=== PATIENT | male | born 1975 | race Caucasian/White ===

== ENCOUNTER 2017-08-29 20:44 | Emergency (ER) | payer SELFPAY ==
[~2017-08-29] VITALS: Ht 154.9 cm; Wt 79.5 kg
[2017-08-29 20:54] VITALS: Ht 154.9 cm; Wt 79.5 kg
[2017-08-29] MEDS ORDERED: SOD CHLORIDE 0.9% 1,000 ML IV STA (23:19)
[2017-08-29] MEDS ORDERED: KETOROLAC 30 MG INJ IV STA (23:19)
--- NOTE | 2017-08-29 23:34 | ERD ---
ER Documentation Chief Complaint Date/Time DATE: 08/29/17 TIME: 23:25 Chief Complaint fever x 3 days, pain on urination x months HPI 42-year-old male presents here in emergency department for complaints of fever for 3 days, patient has been having dysuria for months now, for the last 3 months, is worse in the last 1 week. Patient denies any hematuria. Patient is complaining of pain upon urination burning pain 4/10 scale, accompanied with right testicular pain. Patient denies any swelling in the right testicle. Patient denies any flank pain. Patient denies any diarrhea or constipation. Patient denies any other symptoms. Patient denies any recent trauma. Patient denies any sick contacts. Patient did not take any medications to help with symptoms. ROS All systems reviewed and are negative except as per history of present illness. Medications Home Meds Active Scripts Tramadol HCl (Tramadol HCl) 50 Mg Tablet, 50 MG PO Q6 Y for SEVERE PAIN LEVEL 7- 10, #20 TAB Prov:KVNG TRIVEDI NP 08/30/17 Phenazopyridine Hcl* (Pyridium*) 200 Mg Tab, 200 MG PO TID Y for URINARY PAIN, # 6 TAB Prov:KVNG TRIVEDI NP 08/30/17 Ciprofloxacin Hcl* (Ciprofloxacin Hcl*) 500 Mg Tablet, 500 MG PO BID for 10 Days , TAB Prov:KVNG TRIVEDI NP 08/30/17 Reported Medications [none] Unknown Strength No Conflict Check 08/29/17 Allergies Allergies: Coded Allergies: No Known Allergy (Unverified , 08/29/17) PMhx/Soc Medical and Surgical Hx: pt denies Medical Hx, pt denies Surgical Hx FmHx Family History: No coronary disease, No diabetes, No other Physical Exam Vitals Vital Signs Date Time Temp Pulse Resp B/P Pulse Ox O2 Delivery O2 Flow Rate FiO2 08/30/17 04:22 98.6 84 16 134/78 98 Room Air 08/29/17 20:54 101.0 101 20 140/85 100 Physical Exam GENERAL: The patient is well developed and appropriate for usual state of health, in no apparent distress. CHEST: Clear to auscultation bilaterally. There are no rales, wheezes or rhonchi. HEART: Regular rate and rhythm. No murmurs, clicks, rubs or gallops. No S3 or S4. ABDOMEN: Soft, nontender and nondistended. Good bowel sounds. No rebound or guarding. No gross peritonitis. No gross organomegaly or masses. No Diggs sign or McBurney point tenderness. BACK: No midline or flank tenderness. EXTREMITIES: Equal pulses bilaterally. There is no peripheral clubbing, cyanosis or edema. No focal swelling or erythema. Full range of motion. Grossly neurovascularly intact. NEURO: Alert and oriented. Cranial nerves 2-12 intact. Motor strength in all 4 extremities with 5/5 strength. Sensation grossly intact. Normal speech and gait. SKIN: There is no apparent rash or petechia. The skin is warm and dry. HEMATOLOGIC AND LYMPHATIC: There is no evidence of excessive bruising or lymphedema. No gross cervical, axillary, or inguinal lymphadenopathy. : Mild tenderness on palpation the right testicle, no redness noted, noted enlarged left testicle, per patient this is normal for him ever since he was young. No penile discharge. Result Diagram: 08/29/17232908/29/172329 Results 24 hrs Laboratory Tests Test 08/29/17 23:30 White Blood Count 6.610^3/ul Red Blood Count 5.2510^6/ul Hemoglobin 15.6g/dl Hematocrit 45.2% Mean Corpuscular Volume 86.1fl Mean Corpuscular Hemoglobin 29.7pg Mean Corpuscular Hemoglobin Concent 34.5g/dl Red Cell Distribution Width 12.3% Platelet Count 20721^3/UL Mean Platelet Volume 12.8fl Neutrophils % 58.2% Lymphocytes % 28.3% Monocytes % 10.6% Eosinophils % 1.5% Basophils % 0.9% Nucleated Red Blood Cells % 0.0/100WBC Neutrophils # 3.910^3/ul Lymphocytes # 1.910^3/ul Monocytes # 0.710^3/ul Eosinophils # 0.110^3/ul Basophils # 0.110^3/ul Nucleated Red Blood Cells # 0.010^3/ul Urine Color YELLOW Urine Clarity CLEAR Urine pH 6.0 Urine Specific [place] 1.018 Urine Ketones NEGATIVEmg/dL Urine Nitrite POSITIVEmg/dL Urine Bilirubin NEGATIVEmg/dL Urine Urobilinogen NEGATIVEmg/dL Urine Leukocyte Esterase 1+Gerard/ul Urine Microscopic RBC 1/HPF Urine Microscopic WBC 19/HPF Urine Bacteria MANY/HPF Urine Yeast (Budding) MANY/HPF Urine Hemoglobin NEGATIVEmg/dL Urine Glucose NEGATIVEmg/dL Urine Total Protein NEGATIVEmg/dl Sodium Level 137mmol/L Potassium Level 4.0mmol/L Chloride Level 105mmol/L Carbon Dioxide Level 24mmol/L Anion Gap 12 Blood Urea Nitrogen 11mg/dl Creatinine 0.80mg/dl Glucose Level 102mg/dl Lactic Acid Level 0.9mmol/L Calcium Level 9.5mg/dl Total Bilirubin 0.7mg/dl Direct Bilirubin 0.00mg/dl Indirect Bilirubin 0.7mg/dl Aspartate Amino Transf (AST/SGOT) 43IU/L Alanine Aminotransferase (ALT/SGPT) 67IU/L Alkaline Phosphatase 95IU/L Total Protein 7.7g/dl Albumin 3.9g/dl Globulin 3.80g/dl Albumin/Globulin Ratio 1.02 Lipase 127U/L Current Medications Medications (Trade) Dose Ordered Sig/Sri Route PRN Reason Start Time Stop Time Status Last Admin Dose Admin Sodium Chloride (NS) 1,000 ml @ 1,000 mls/hr Q1H STAT IV 08/29/17 23:19 08/30/17 00:18 DC 08/29/17 23:37 Ketorolac Tromethamine 30 mg 30 mg ONCE STAT IV 08/29/17 23:19 08/29/17 23:22 DC 08/29/17 23:37 Ciprofloxacin/ Dextrose (Cipro Ivpb) 200 ml @ 200 mls/hr ONCE ONCE IVPB 08/30/17 03:00 08/30/17 03:59 DC 08/30/17 02:58 Patient was given medication for pain here in emergency department, after treatment, patient verbalized feeling much better. Patient's pain is improved. Microbiology INFLUENZA A & B BY EIA Final INFLU A&B BY EIA INFLUENZA A NEGATIVE (Ref Range Neg) INFLUENZA B NEGATIVE (Ref Range Neg) PROCEDURE: XR Chest. CLINICAL INDICATION: Fever. TECHNIQUE: Single frontal chest x-ray. COMPARISON: None. FINDINGS: The cardiomediastinal silhouette is unremarkable. There is no congestive heart failure.. No focal infiltrate is seen. There is no pleural effusion. There is no pneumothorax. There are degenerative changes of the thoracic spine.. IMPRESSION: No acute abnormality. RPTAT: HMVK .Axel Orellana MD, Date Time Electronically viewed and signed by .Axel Orellana MD, MD on 08/30/2017 02:25 .K/ CC: KVNG TRIVEDI NP PROCEDURE: CT Abdomen and Pelvis without contrast. CLINICAL INDICATION: Abdominal pain. TECHNIQUE: A CT scan of the abdomen and pelvis was performed without intravenous contrast. Coronal and sagittal reformatted images were generated. Images were reviewed on a high-resolution PACS workstation. CTDIvol: 12.43 mGy. DLP: 828.94 mGy-cm. One or more of the following dose reduction techniques were used: - Automated exposure control. - Adjustment of the mA and/or kV according to patient size. - Use of iterative reconstruction technique. COMPARISON: None. FINDINGS: Calcified granulomas are noted in the right middle lobe and lingula. The heart is mildly enlarged. Evaluation of the abdominal and pelvic viscera is limited by the lack of oral and intravenous contrast. The liver is unremarkable. The gallbladder is normal in appearance. The common bile duct is not dilated. The spleen is not enlarged. No pancreatic lesion is identified and there is no pancreatic ductal dilatation. The adrenal glands are unremarkable. The kidneys are normal in size. There is mild symmetric perinephric fat stranding, probably age-related. No hydronephrosis is seen. No urinary stone is identified. The small and large bowel are normal in caliber. There is no bowel wall thickening. The appendix is normal. The urinary bladder is unremarkable. The prostate gland and seminal vesicles are within normal limits. There is a very large fat containing left inguinal hernia. No lymphadenopathy is identified. There is no ascites. No pneumoperitoneum is seen. There are no arterial calcifications. No suspicious osseous lesion is idenitified. There is moderate multilevel spinal canal stenosis from L2 to L5 due to disc herniations. There is moderate bilateral neural foraminal narrowing at L4-L5 and severe bilateral neural foraminal narrowing at L5-S1. IMPRESSION: 1. No inflammation, mass, or lymphadenopathy. 2. Normal appendix. 3. No obstructive uropathy or urinary stone. 4. Very large fat containing left inguinal hernia. 5. Mild cardiomegaly. 6. Moderate multilevel spinal canal stenosis from L2 to L5. 7. Moderate bilateral neural foraminal narrowing at L4-L5 and severe bilateral neural foraminal narrowing at L5-S1. RPTAT: HTAR .Cuauhtemoc Watson MD, Date Time Electronically viewed and signed by .Cuauhtemoc Watson MD, on 08/30/2017 01:05 .R/ CC: KVNG TRIVEDI NP PROCEDURE: SCROTAL ULTRASOUND: CLINICAL INDICATION: 42 years of age, male. Right testicular pain . COMPARISON: None available TECHNIQUE: Multiple transverse and sagittal ochoa scale, color, and spectral Doppler sonographic images of the scrotum were obtained. FINDINGS: Right scrotum: Testis measurements: 5.7 x 3.1 x 3.2 cm (Vol 29.7 mL). Testis appearance: Scattered microlithiasis. Echogenicity is otherwise normal. Color and spectral Doppler tracings: Normal arterial flow. Flow is increased compared to the left testicle. Epididymis: Normal. Other: Moderate right hydrocele with debris Left scrotum: Testis measurements: 1.8 x 2.8 x 2.2 cm (Vol 5.8 mL). Testis appearance: Scattered microlithiasis. Echogenicity is otherwise normal. Color and spectral Doppler tracings: Normal arterial flow. Flow is decreased compared to the right testicle. Epididymis: Normal. Other: No hydrocele or varicocele. Additional comment: None. IMPRESSION: 1. Moderate right hydrocele with debris. This is a potential cause for right scrotal pain. 2. Atrophic left testicle. Right testicle is top normal in size. Relative increased blood flow in the right testicle compared to the left may be due to its larger size. Right testicular orchitis cannot be excluded. Epididymi appear normal. 3. Bilateral testicular microlithiasis. This is a risk factor for germ cell metaplasia that may increase the risk of germ cell tumors in at risk patients. Risk factors include, but are not limited to, previous undescended testicle or hypogonadism. If there are risk factors, annual ultrasound imaging surveillance is advised. In the absence of risk factors, recommend annual clinical exam. RPTAT: HCTS Signed By: Felicia Noble/MDM Medical Decision Making: Symptoms of fever and dysuria most likely is consistent with urinary tract infection is seen in the urinalysis results with positive nitrite. Patient does not have any leukocytosis, no bandemia. No symptoms of pyelonephritis. Right testicular pain most likely is from moderate right hydrocele noted in the ultrasound. No symptoms of testicular torsion, no symptoms of epididymitis, orchitis. There is testicular microlithiasis noted, patient was informed about this and advised to follow-up with urology specialist for further evaluation, patient also has inguinal hernia and was advised to follow-up with urology specialist for this. Patient was given IV ciprofloxacin here in emergency department, will be sent home with Cipro Floxin for treatment of urinary tract infection. Lactic acid is normal, no symptoms of sepsis at this time. There is low suspicion for abdominal emergencies at this time. Patients abdominal exam is normal at this time. Patients radiology exam does not show any abdominal emergencies at this time. There is low suspicion for appendicitis, cholecystitis, abdominal aortic aneurysms or peritonitis at this time. There is low suspicion for sepsis. Patient appears well and is hemodynamically stable. Disposition: Home. Condition: Stable Prescription Cipro, Pyridium, tramadol Instructions: Patient is advised to take medications as prescribed. Patient is advised to rest, increase fluid intake and do brat diet for next 1-2 days and progress as tolerated. Patient is advised that if symptoms are worse, severe abdominal pain, uncontrolled vomiting, high fever, severe flank pain, worst signs and symptoms, to return to the emergency department immediately. Otherwise, patient can follow up with primary care doctor in 5-7 days. Disclaimer: Inadvertent spelling and grammatical errors are likely due to EHR/ dictation software use and do not reflect on the overall quality of patient care. Also, please note that the electronic time recorded on this note does not necessarily reflect the actual time of the patient encounter. Departure Diagnosis: Primary Impression: UTI (urinary tract infection) Urinary tract infection type: acute cystitis Hematuria presence: without hematuria Qualified Code: N30.00 - Acute cystitis without hematuria Additional Impressions: Hydrocele, right Testicular microlithiasis Inguinal hernia Obstruction and gangrene presence: without obstruction or gangrene Laterality : unilateral Recurrence: not specified as recurrent Qualified Code: K40.90 - Unilateral inguinal hernia without obstruction or gangrene, recurrence not specified Condition: Stable Patient Instructions: Hernia (Inguinal, Ventral, Umbilical), Hydrocele, Type Not Specified, Understanding Urinary Tract Infections (UTIs) Additional Instructions: Patient is advised to take medications as prescribed. Patient is advised to rest, increase fluid intake and do brat diet for next 1-2 days and progress as tolerated. Patient is advised that if symptoms are worse, severe abdominal pain , uncontrolled vomiting, high fever, severe flank pain, worst signs and symptoms , to return to the emergency department immediately. Otherwise, patient can follow up with primary care doctor in 5-7 days. KVNG TRIVEDI NP Aug 29, 2017 23:34
[2017-08-29 23:54] LABS: BASOPHIL # 0.1 10^3/ul (0.0-0.1); BASOPHILS % 0.9 % (0.0-2.0); EOSINOPHILS # 0.1 10^3/ul (0.0-0.5); EOSINOPHILS % 1.5 % (0.0-7.0); HEMATOCRIT 45.2 % (42.0-52.0); HEMOGLOBIN 15.6 g/dl (14.0-18.0); LYMPHOCYTES # 1.9 10^3/ul (0.8-2.9); LYMPHOCYTES % 28.3 % (15.0-51.0); MEAN CORPUSCULAR HEMOGLOBIN 29.7 pg (29.0-33.0); MEAN CORPUSCULAR HGB CONC 34.5 g/dl (32.0-37.0); MEAN CORPUSCULAR VOLUME 86.1 fl (82.0-101.0); MEAN PLATELET VOLUME 12.8 fl (7.4-10.4); MONOCYTE # 0.7 10^3/ul (0.3-0.9); MONOCYTES % 10.6 % (0.0-11.0); NEUTROPHIL # 3.9 10^3/ul (1.6-7.5); NEUTROPHILS % 58.2 % (39.0-77.0); PLATELET COUNT 131 10^3/UL (140-415); POSITIVE DIFF @See below; RED BLOOD COUNT 5.25 10^6/ul (4.70-6.10); RED CELL DISTRIBUTION WIDTH 12.3 % (11.5-14.5); WHITE BLOOD COUNT 6.6 10^3/ul (4.8-10.8)
[2017-08-30 00:10] LABS: ADD UMIC YES; UR ASCORBIC ACID NEGATIVE (NEGATIVE); UR BACTERIA MANY /HPF (NONE SEEN); UR BILIRUBIN (Dip) NEGATIVE (NEGATIVE); UR BLOOD (Dip) NEGATIVE (NEGATIVE); UR BUDDING YEAST MANY /HPF (NONE SEEN); UR CLARITY CLEAR (CLEAR); UR COLOR YELLOW (YELLOW); UR GLUCOSE (Dip) NEGATIVE (NEGATIVE); UR KETONES (Dip) NEGATIVE (NEGATIVE); UR LEUKOCYTE ESTERASE (Dip) 1+ Leu/ul (NEGATIVE); UR NITRITE (Dip) POSITIVE (NEGATIVE); UR RBC 1 /HPF (0-5); UR SPECIFIC GRAVITY (Dip) 1.018 (1.003-1.030); UR TOTAL PROTEIN (Dip) NEGATIVE (NEGATIVE); UR UROBILINOGEN (Dip) NEGATIVE (NEGATIVE)
[2017-08-30 00:14] LABS: ALBUMIN 3.9 g/dl (3.3-4.9); ALBUMIN/GLOBULIN RATIO 1.02; BILIRUBIN,INDIRECT 0.7 mg/dl (0-1.1); BILIRUBIN,TOTAL 0.7 mg/dl (0.2-1.3); CALCIUM 9.5 mg/dl (8.4-10.2); CREATININE 0.8 mg/dl (0.61-1.24); TOTAL PROTEIN 7.7 g/dl (6.1-8.1)
--- NOTE | 2017-08-30 01:05 | RADRPT ---
PROCEDURE: CT Abdomen and Pelvis without contrast. CLINICAL INDICATION: Abdominal pain. TECHNIQUE: A CT scan of the abdomen and pelvis was performed without intravenous contrast. Ac l and sagittal reformatted images were generated. Images were reviewed on a high-resolution PACS wor kstation. CTDIvol: 12.43 mGy. DLP: 828.94 mGy-cm. One or more of the following dose reduction techniques were used: - Automated exposure control. - Adjustment of the mA and/or kV according to patient size. - Use of iterative reconstruction technique. COMPARISON: None. FINDINGS: Calcified granulomas are noted in the right middle lobe and lingula. The heart is mildly enlarged. Evaluation of the abdominal and pelvic viscera is limited by the lack of oral and intravenous contra st. The liver is unremarkable. The gallbladder is normal in appearance. The common bile duct is not dila franco. The spleen is not enlarged. No pancreatic lesion is identified and there is no pancreatic ducta l dilatation. The adrenal glands are unremarkable. The kidneys are normal in size. There is mild symmetric perinephric fat stranding, probably age-rela franco. No hydronephrosis is seen. No urinary stone is identified. The small and large bowel are normal in caliber. There is no bowel wall thickening. The appendix is normal. The urinary bladder is unremarkable. The prostate gland and seminal vesicles are within normal limit s. There is a very large fat containing left inguinal hernia. No lymphadenopathy is identified. There is no ascites. No pneumoperitoneum is seen. There are no art erial calcifications. No suspicious osseous lesion is idenitified. There is moderate multilevel spinal canal stenosis from L2 to L5 due to disc herniations. There is moderate bilateral neural foraminal narrowing at L4-L5 a nd severe bilateral neural foraminal narrowing at L5-S1. IMPRESSION: 1. No inflammation, mass, or lymphadenopathy. 2. Normal appendix. 3. No obstructive uropathy or urinary stone. 4. Very large fat containing left inguinal hernia. 5. Mild cardiomegaly. 6. Moderate multilevel spinal canal stenosis from L2 to L5. 7. Moderate bilateral neural foraminal narrowing at L4-L5 and severe bilateral neural foraminal [place] row[place] at L5-S1. RPTAT: HTAR .Cuauhtemoc Watson MD, MD Date Time Electronically viewed and signed by .Cuauhtemoc Watson MD, on 08/30/2017 01:05 .R/
--- NOTE | 2017-08-30 02:25 | RADRPT ---
PROCEDURE: XR Chest. CLINICAL INDICATION: Fever. TECHNIQUE: Single frontal chest x-ray. COMPARISON: None. FINDINGS: The cardiomediastinal silhouette is unremarkable. There is no congestive heart failure.. No focal i nfiltrate is seen. There is no pleural effusion. There is no pneumothorax. There are degenerative changes of the thoracic spine.. IMPRESSION: No acute abnormality. RPTAT: HMVK .Axel Orellana MD, MD Date Time Electronically viewed and signed by .Axel Orellana MD, MD on 08/30/2017 02:25 .K/
[2017-08-30] MEDS ORDERED: TRAM50TA2 PO (02:53)
[2017-08-30] MEDS ORDERED: CIPR500T4 PO (02:53)
[2017-08-30] MEDS ORDERED: PHEN-538 PO (02:53)
[2017-08-30] MEDS ORDERED: CIPROFLOXACIN 400MG/D5W 200 ML IVPB ONE (03:00)
[2017-08-30 04:22] VITALS: BP 134/78; PULSE 84; RESP 16; TEMP 98.6
== END 2017-08-30 04:23 | disposition home or self-care (01) ==
LOC: FTE 20:44
DX: N30.00 Acute cystitis without hematuria (principal); N43.3 Hydrocele, unspecified; N50.89 Other specified disorders of the male genital organs; K40.90 Unilateral inguinal hernia, without obstruction or gangrene, not specified as recurrent
CPT/HCPCS: 36415; 71010; 74176; 76870; 80053; 81001; 83605; 83690; 85025; 87400; 96374; 96375; 99285; J0744; J1885; J7030